=== PATIENT | female | born 1985 | race Caucasian/White ===

== ENCOUNTER 2017-07-03 23:23 | Observation (INO) ==
[2017-07-03] MEDS ORDERED: IOPAMIDOL 100 ML BOTTLE IJ ONE (23:24)
[2017-07-03] MEDS ORDERED: 0.9 % SODIUM CHLORIDE 1,000 ML IV ONE (23:49)
[2017-07-03] MEDS ORDERED: diphenhydrAMINE 50 MG/ML VIAL IV ONE (23:49)
[2017-07-03] MEDS ORDERED: methylPREDNISolone SOD SUCC 125 MG/2 ML VIAL IV ONE (23:49)
--- NOTE | 2017-07-03 23:57 | Emergency Department Note ---
Allergic Reaction HPI - General Chief complaint: Allergic Reaction Stated complaint: Hives, "Tingling lips". Time Seen by Provider: 07/03/17 23:47 Source: patient Mode of arrival: ambulatory Limitations: no limitations - History of Present Illness HPI Narrative: 31-year-old female seen earlier today for an allergic type reaction with significant urticarial rash. She was sent home on prednisone after getting Solu -Medrol Benadryl here. She did take home Benadryl but she has been having significant nausea vomiting and cannot keep any of her medicines down. She did have a bowel movement which was runny just before coming in night. Denies fever dyspnea. However she did have some tingling in her perioral area. She thinks she may have tried a new fragrance and body wash and this may be the trigger for her urticaria. Alternatively she relates that she has been in the hot tub at a local hotel-there was concern that this was not probably pH balanced and this may have been the trigger. Anyways, regardless of the trigger her whole body urticaria seems to be better now despite worsening nausea and vomiting - Related Data Home Medications Medication Instructions Recorded Confirmed diphenhydrAMINE HCL [Benadryl] 50 mg PO Q6HP PRN 07/02/17 07/03/17 Previous Rx's Medication Instructions Recorded predniSONE [Prednisone] 20 mg PO DAILY #23 tab 07/02/17 Fexofenadine [Kimberly] 180 mg PO BID #30 tab 07/03/17 Ondansetron HCl [Zofran ODT] 4 mg SL Q4-6HP PRN #10 tab 07/03/17 Allergies Allergy/AdvReac Type Severity Reaction Status Date / Time No Known Drug Allergies Allergy Verified 07/02/17 10:03 Review of Systems All systems ED: reviewed and negative except as stated. Past Medical History - Past Medical History Attestation: Yes: The following information was validated with the patient. Medical history: Reports: hypertension (Pre-eclampsia) Surgical history ED: Reports: - Social History smoking status: Current every day smoker Alcohol use: Reports: Occasionally Drug use: Reports: none Physical Exam Some acute distress secondary to nausea. Normocephalic atraumatic. Conjunctive are clear sclerae nonicteric. No nasal discharge but some audible congestion. Oropharynx pink and moist. Posterior pharynx is erythematous without exudate. Neck supple without lymphadenopathy thyromegaly. Heart regular rate and rhythm no murmur appreciated. Lungs clear to auscultation bilaterally without wheezes rales rhonchi or respiratory distress. +2 radial pulse. Skin exam shows diffuse urticarial rash which is much improved now almost totally gone off bilateral arms improving on legs as well and trunk. This is perhaps 70% improved from when I saw her this afternoon. She is alert and oriented Limitations: no limitations Course Vital Signs Temperature 98.5 F 07/03/17 23:24 Pulse Rate 110 H 07/03/17 23:24 Respiratory Rate 18 07/03/17 23:24 Blood Pressure 162/107 07/03/17 23:24 Pulse Oximetry (%) 95 07/03/17 23:24 Temperature 98.5 F 07/03/17 23:24 Pulse Rate 106 H 07/04/17 02:19 Respiratory Rate 18 07/03/17 23:24 Blood Pressure 144/108 07/04/17 02:16 Pulse Oximetry (%) 97 07/04/17 02:19 Allergic Reaction - Radiology Data Radiology results reviewed: Yes I reviewed the patient's radiology results. CT scan of the abdomen pelvis shows no acute abnormality Disposition Pt seen by SENIOR IT SECURITY ANALYST/PA only: No Clinical Impression: Urticaria, Dehydration Nausea & vomiting Qualifiers: Vomiting type: unspecified Vomiting Intractability: intractable Qualified Code( s): R11.2 - Nausea with vomiting, unspecified Summary: Rash is improved but nausea vomiting are actually worse. She is not able keep any food or medicines down she had been previously dehydrated when she came in last time. Start IV fluids and we will also do Zofran Solu-Medrol and Benadryl. Will go ahead and scan her belly due to the refractory nausea and vomiting as well as unclear cause of her urticaria-however this time she expresses that perhaps the original source of urticaria was the hot tub at her hotel or possibly new fragrance and body wash she used 2 days ago. Her rash continued to improve but nausea persisted. She did not have any further episodes of vomiting here but because this is her third visit less than 24 hours and we have not been able to control her nausea home with Zofran-she has failed outpatient treatment with Benadryl and Solu-Medrol because she cannot hold these medicines down. it seems reasonable to bring her in for observation status to control her nausea and vomiting with IV Zofran and give her fluids for dehydration. We can continue to treat her hives with Benadryl and Solu-Medrol I discussed her situation with Dr. Dubon who agreed to accept the patient for further treatment. He asked me to write transition orders and will see her first thing in the morning. This was done Disposition: Xfer As Outpt/Obs ([facility]) Condition: Fair
[2017-07-03] MEDS ORDERED: ONDANSETRON 4 MG/2 ML VIAL IV ONE (23:59)
[2017-07-04] MEDS ORDERED: ONDANSETRON 4 MG/2 ML VIAL IV PRN (02:25)
[2017-07-04] MEDS ORDERED: ACETAMINOPHEN 325 MG TABLET PO PRN (02:25)
[2017-07-04] MEDS ORDERED: PROMETHAZINE 25 MG/ML VIAL IM PRN (02:25)
[2017-07-04] MEDS ORDERED: diphenhydrAMINE 50 MG/ML VIAL IV PRN (02:28)
[2017-07-04] MEDS: 0.9 % SODIUM CHLORIDE 1,000 ML IV SCH ×3 (03:22→18:26)
[2017-07-04] MEDS: methylPREDNISolone SOD SUCC 40 MG/ML VIAL IV SCH ×2 (05:58→11:45)
[2017-07-04] MEDS ORDERED: FAMOTIDINE/PF 20 MG/2 ML VIAL IV SCH (09:00)
--- NOTE | 2017-07-04 09:01 | Cat Scan Report ---
CLINICAL INFORMATION: Hives nausea and vomiting. Abdominal pain COMPARISON: None. TECHNIQUE: Following enteric contrast, 80 cc of Isovue-300 were injected intravenously, and 60 seconds later, 0.625 mm helical slices were obtained from the mid heart through the subtrochanteric regions. Following reconstruction, 2.5 mm sagittal, coronal and axial reformatted images were processed and reviewed at bone, lung and soft tissue windows. Five minutes later, 0.625 mm helical slices were obtained from the mid heart through the kidneys and viewed at soft tissue windows.The exam was performed using radiation dose optimization techniques including, but not limited to, automated exposure control, adjustment of the mA and/or kV according to patient size and use of iterative reconstruction technique. FINDINGS: Lung bases show no abnormality - no effusion. Visualized heart is normal. Images should the abdomen show the gallbladder and bile ducts, liver, both kidneys, adrenal glands, spleen, pancreas and aorta including aortic branches be normal in size, configuration and attenuation without focal lesion. There is no free air, free fluid and no adenopathy. The stomach, small and large bowel, including the appendix, are normal. Images through the pelvis show normal uterus which is anteflexed: 7 x 4 cm. Urinary bladder is unremarkable. Small follicles are seen on the ovaries. Bone windows show no osseous abnormality IMPRESSION: Normal Interpreted and Authenticated by: Tera Velázquez 07/04/17
[2017-07-04] MEDS: diphenhydrAMINE 50 MG/ML VIAL IV PRN ×3 (09:18→16:56)
[2017-07-04] MEDS ORDERED: NICOTINE 7 MG PATCH TOPICAL SCH (10:00)
--- NOTE | 2017-07-04 10:55 | Internal Med History&Physical ---
Medical - H&P: HPI Patient information: Note initiated : 07/04/17 at 10:53 am Service Date, if different from initiated Date: [] Patient: Violet Cortés 31 y/o F admitted on 07/04/17 for Hives, "Tingling Lips ". Chief Complaint: Nausea, vomiting, hives History of present illness: This 31-year-old female with a history of allergic reactions in the past, including a possible history of asthma. She presents the emergency department for the third time with nausea and vomiting associated with cutaneous eruption. Patient noted on Monday that she had a bump behind her ear. She scratched at that time and when she awoke from a nap, had a rash on her trunk, papular, erythematous, consistent with urticaria.. On Monday it spread into her face and hands. On Monday it spread down into her legs and feet. She was seen in the ED on Monday morning, treated with antihistamines. She was seen again on Monday when the rash progressed, was treated was antihistamines and steroids. However the patient developed significant nausea and was unable to keep down her medications. She re-presented to the ED Monday evening with nausea and vomiting. In spite of IV fluids and anti-emetics, she still was unable to keep down oral medications to treat her urticarial eruption. Patient's nausea and vomiting started Monday, became worse Monday, particular Monday evening. She noticed some red flecks in her emesis, no destinee blood. No coffee grounds. She was having some lower abdominal pain, which is now improved. She did have some loose stools yesterday, nonbloody, non-melenic.. She's had no antibiotic exposures. She denies any fevers or chills. She's had no cough. She's had no throat tightness. She's had no noticeable wheezing. This morning she did feel a little short of breath and slight difficulty in trying to swallow a pill. In the past she has had lip swelling after drinking a certain brand of Route ear (Yaron's) but she's had no history of anaphylaxis, no history of angioedema. She has not take SABRINA inhibitors. Patient's son has been ill, with a similar rash along with fever, rhinorrhea and cough. In addition the patient used a new conditioner and body wash. She was also in a hot tub, where the occupants were asked to leave secondary to abnormalities in the chemistry of the water. This was about the time of the onset of her symptoms. Strong family history of allergic reactions. Due to her ongoing inability to keep down oral intake, she is being hospitalized for fluids, antiemetics and observation. Review of systems: Except as noted in history of present illness, the remainder of the review of systems is negative for 12 points Medical - H&P: PMH Medical history: History of pre-eclampsia History of allergic reactions/urticaria Possible asthma History of Bacterial pharyngitis (Acute) History of Otitis externa (Acute) History of Otitis media (Acute) History of Conjunctivitis (Acute) Pertinent family history: Mother with allergic reactions to pollens, foods and multiple triggers. Cousin with celiac. Social history: Smokes about 1/2 PPD, rare alcohol Medical - H&P: Meds Home Medications Medication Instructions Recorded Confirmed Type diphenhydrAMINE HCL [Benadryl] 50 mg PO Q6HP PRN 07/02/17 07/04/17 History predniSONE [Prednisone] 20 mg PO DAILY #23 tab 07/02/17 07/04/17 Rx Fexofenadine [Kimberly] 180 mg PO BID #30 tab 07/03/17 07/04/17 Rx Ondansetron HCl [Zofran ODT] 4 mg SL Q4-6HP PRN #10 tab 07/03/17 07/04/17 Rx Allergies Allergy/AdvReac Type Severity Reaction Status Date / Time No Known Drug Allergies Allergy Verified 07/02/17 10:03 Medical - H&P: Exam - Constitutional Vitals: Temp Pulse Resp BP Pulse Ox 98.1 F 104 H 20 143/84 97 07/04/17 06:47 07/04/17 03:07 07/04/17 06:47 07/04/17 06:47 07/04/17 07:43 Exam: General: Alert, uncomfortable HEENT: Normocephalic. Pupils are equally round and reactive to light. Sclera are anicteric. No conjunctival injection. Oropharynx is with moist mucous membranes, no lip or gum lesions, palate is nonedematous. Tongue is midline. Neck: Supple, no meningismus. No thyromegaly. No stridor. Chest: Clear to auscultation bilaterally with no rales or wheezes. No accessory muscle use. Cardiovascular: Regular rate and rhythm without murmur gallop or rub. Carotid pulses are 2+ without bruit. There is no lower extremity edema. JVP is normal. Abdomen: Soft, nontender time of my exam without guarding or rebound. Active bowel sounds. Lymphatic: No cervical or supraclavicular lymphadenopathy. Skin: Warm, erythematous petechial patches across the trunk and limbs. No wheal currently. Musculoskeletal: No joint erythema or tenderness. Normal range of motion in the upper and lower extremities. Strength 5/5 in upper and lower extremities. Digits without cyanosis or clubbing. Neuro: Alert, oriented X3. Cranial nerves II through XII grossly intact. Sensation intact to light touch. Psychiatric: Affect and orientation are normal. Good insight. Medical - H&P: Reslt - Labs Labs: From Monday morning's visit: Sodium 134, potassium 3.4, chloride 92, bicarbonate 29, bun 19, creatinine 0.8. Liver enzymes are normal. White count 19.1 (status post steroids), hemoglobin 15.5, platelet count 429,000 with 90% neutrophils on differential. Urinalysis is kan, cloudy, negative leukocyte esterase, 1 white cell, 6 squamous cells, few bacteria and hyaline casts on microscopic. Medical - H&P: A/P (1) Allergic reaction Current visit: Yes Status: Acute (2) Nausea & vomiting Current visit: Yes Status: Acute - Narrative A/P Narrative: 31 year old female with a history of allergic reactions, including lip swelling , dermatitis with urticarial reactions in the past presents with nausea and vomiting after being treated for prolonged cutaneous allergic reaction. Allergic reaction, nausea and vomiting. No current urticarial wheals, however multiple areas of petechial rash consistent with prior urticarial eruptions. This is starting to fade. However the patient is experiencing nausea and vomiting, unclear etiology. This could represent GI symptoms of an allergic reaction. She has no history of angioedema, no cutaneous angioedema symptoms, thus less likely this represents got angioedema. No tachycardia, no dyspnea, no wheezing, no hypotension to suggest anaphylaxis with GI involvement. Plan: Hospitalization on observation Antiemetics as needed Continue IV fluids Continue steroids Continue with IV diphenhydramine Add IV famotidine for H2 antagonism CODE STATUS is full code Medical - H&P: Qual - VTE Deep Vein Thrombosis/Pulmonary Embolism Present on Admission: No
--- NOTE | 2017-07-04 16:14 | Discharge Summary ---
Medical - DS: Prov Patient information: Note initiated : 07/04/17 at 4:12 pm Service Date, if different from initiated Date: [] Patient: Violet Cortés 31 y/o F admitted on 07/04/17 for Hives, "Tingling Lips ". Date of admission: 07/04/17 03:01 Discharge date: 07/04/17 Admitting clinician: Sarahi Live Consults: 07/04/17 02:19 Consult to Physician [CONS] Stat Comment: Consulting Provider: Sarahi Live Reason For Exam: Physician to Consult Discharging clinician: Sarahi Live Medical - DS: Meds - Discharge Medications Prescriptions: Famotidine [Heartburn Prevention] 40 mg PO BID #120 tab Active and Home Medications: Home Medications diphenhydrAMINE HCL [Benadryl] 50 mg PO Q6HP PRN 07/02/17 [History Confirmed 08/20 Last Taken 07/03/17 09:00] predniSONE [Prednisone] 20 mg PO DAILY #23 tab 07/02/17 [Rx Confirmed 07/04/17 Last Taken 07/03/17 09:00] Fexofenadine [Kimberly] 180 mg PO BID #30 tab 07/03/17 [Rx Confirmed 07/04/17 Last Taken 07/03/17 15:00] Ondansetron HCl [Zofran ODT] 4 mg SL Q4-6HP PRN #10 tab 07/03/17 [Rx Confirmed 07/04/17 Last Taken 07/03/17 22:30] Medical - DS: Hosp Hospital course: This 31-year-old female with a history of allergic reactions in the past, including a possible history of asthma. She presents the emergency department for the third time with nausea and vomiting associated with cutaneous eruption. Patient noted on Monday that she had a bump behind her ear. She scratched at that time and when she awoke from a nap, had a rash on her trunk, papular, erythematous, consistent with urticaria.. On Monday it spread into her face and hands. On Monday it spread down into her legs and feet. She was seen in the ED on Monday morning, treated with antihistamines. She was seen again on Monday when the rash progressed, was treated was antihistamines and steroids. However the patient developed significant nausea and was unable to keep down her medications. She re-presented to the ED Monday evening with nausea and vomiting. In spite of IV fluids and anti-emetics, she still was unable to keep down oral medications to treat her urticarial eruption. Patient's nausea and vomiting started Monday, became worse Monday, particular Monday evening. She noticed some red flecks in her emesis, no destinee blood. No coffee grounds. She was having some lower abdominal pain, which is now improved. She did have some loose stools yesterday, nonbloody, non-melenic.. She's had no antibiotic exposures. She denies any fevers or chills. She's had no cough. She's had no throat tightness. She's had no noticeable wheezing. This morning she did feel a little short of breath and slight difficulty in trying to swallow a pill. In the past she has had lip swelling after drinking a certain brand of Route ear (Yaron's) but she's had no history of anaphylaxis, no history of angioedema. She has not take SABRINA inhibitors. Patient's son has been ill, with a similar rash along with fever, rhinorrhea and cough. In addition the patient used a new conditioner and body wash. She was also in a hot tub, where the occupants were asked to leave secondary to abnormalities in the chemistry of the water. This was about the time of the onset of her symptoms. Strong family history of allergic reactions. Due to her ongoing inability to keep down oral intake, she is being hospitalized for fluids, antiemetics and observation. Hospital course: During her hospitalization, her cutaneous symptoms continued to improve. She still had nausea. She had some epigastric tenderness. Famotidine was added to her regimen both for antihistamine effects and for acid suppression. She had significant relief of her nausea after her first dose of famotidine. Afternoon , she was taking oral intake, had no nausea, or urticaria is continuing to improve and she was able to be discharged to home on the afternoon following her engineering research manager hospitalization. She will continue taking her prednisone as previous described, Benadryl, Kimberly and has Zofran on hand if needed. I've also provided prescription for famotidine. Discharge diagnosis: Nausea and vomiting, allergic reaction - Time Spent with Patient Total time spent providing and/or coordinating discharge services: Medical - DS: Exam - Constitutional Vitals: Vital Signs Temp Pulse Pulse Resp BP BP BP 07/04/17 12:00 97.7 F 16 151/93 07/04/17 07:43 07/04/17 06:47 98.1 F 20 143/84 07/04/17 03:07 98.5 F 104 H 18 104/87 07/04/17 03:05 98.8 F 112 H 20 153/81 07/04/17 03:01 96.8 F L 109 H 20 153/81 07/04/17 02:58 104 H 07/04/17 02:47 95 H 104/87 07/04/17 02:31 110 H 147/97 07/04/17 02:30 111 H 145/103 07/04/17 02:19 106 H 07/04/17 02:16 108 H 144/108 07/04/17 02:01 113 H 119/94 07/04/17 01:46 105 H 142/97 07/04/17 01:31 102 H 144/96 07/04/17 01:30 102 H 07/04/17 01:16 103 H 143/97 07/04/17 01:09 98 H 141/95 07/04/17 00:22 160/102 07/03/17 23:24 98.5 F 110 H 18 162/107 Pulse Ox 07/04/17 12:00 94 07/04/17 07:43 97 07/04/17 06:47 95 07/04/17 03:07 95 07/04/17 03:05 96 07/04/17 03:01 95 07/04/17 02:58 95 07/04/17 02:47 96 07/04/17 02:31 96 07/04/17 02:30 96 07/04/17 02:19 97 07/04/17 02:16 97 07/04/17 02:01 97 07/04/17 01:46 95 07/04/17 01:31 94 07/04/17 01:30 94 07/04/17 01:16 94 07/04/17 01:09 94 07/04/17 00:22 07/03/17 23:24 95 Intake and Output 07/04/17 07/04/17 07/04/17 05:59 13:59 21:59 Intake Total 0 / 0 1000 / 1000 Output Total 1100 / 1100 Balance 0 / 0 -100 / -100 Intake: IV 1000 / 1000 Sodium Chloride 0.9% 1,000 ml @ 1000 / 1000 150 mls/hr IV .[id number] FERN Rx#: [id number] Oral 0 / 0 Output: Void Amount 800 / 800 Emesis 300 / 300 Other: # Bowel Movements 1 Weight 200 lb Additional comments: Generally unchanged from the time of admission, cutaneous lesions continued to slowly fade. Medical - DS: A/P - Patient/Caregiver Discharge Instructions Activity: increase activity as tolerated Diet: Regular Diet Additional Instructions: Follow-up as scheduled with fermenter wine - Problem Maintenance (1) Allergic reaction Status: Acute Qualifiers: Encounter type: subsequent encounter Qualified Code(s): T78.40XD - Allergy , unspecified, subsequent encounter (2) Nausea & vomiting Status: Resolved Qualifiers: Vomiting type: unspecified Vomiting Intractability: intractable Qualified Code(s): R11.2 - Nausea with vomiting, unspecified - Follow up Plan Disposition: Home, Self-Care Prognosis: Good Rehab Potential: Good Overall status at discharge: patient is progressing back to baseline Medical - DS: Qual - VTE Deep Vein Thrombosis/Pulmonary Embolism Present on Admission: No
== END 2017-07-04 18:26 | disposition home or self-care (01) ==
LOC: MEDSUR 23:23 → ED 23:23 → MEDSUR 07-04 03:01
PROVIDERS: ADMIT Internal Medicine; ATTEND Internal Medicine